=== PATIENT | female | born 1940 | race Caucasian/White ===

== ENCOUNTER 2017-08-05 19:50 | Inpatient (IN) | payer OTHER, MEDICAID ==
[~2017-08-05] VITALS: Ht 152.4 cm; Wt 50.3 kg
[~2017-08-05 19:50] MED LIST: CARVEDILOL3.125 MG PO; FUROSEMI PO; GLIPIZIDE10 M PO; GLU10; L20; ZOC10; [UNRECOGNIZED DRUG - REMARK]
[2017-08-05 21:10] LABS: microscopic required? YES; urine erythrocyte NEGATIVE (NEGATIVE)
[2017-08-05 21:14] LABS: BASOPHIL % 0.4 % (0-2); PLATELET COUNT 206 x10^3mcL (130-400)
[2017-08-05 21:16] LABS: RED CELL DISTRIBUTION WIDTH 16.5 % (11.5-14.5)
[2017-08-05 21:18] LABS: CALCIUM 8.6 mg/dL (8.5-10.1); CARBON DIOXIDE 26.6 mmol/L (21-32); CHLORIDE SERUM 97 mmol/L (98-107); GLUCOSE SERUM 189 mg/dL (74-106); POTASSIUM SERUM 4.7 mmol/L (3.5-5.1); SODIUM SERUM 135 mmol/L (136-145)
[2017-08-05 21:22] LABS: ALBUMIN 3.6 g/dL (3.4-5.0); ALKALINE PHOSPHATASE 123 U/L (46-116); ALT/SGPT 173 U/L (14-59); AST/SGOT 262 U/L (15-37); BILIRUBIN TOTAL 0.95 mg/dL (0.20-1.00); TOTAL PROTEIN, SERUM 8.4 g/dL (6.4-8.2)
[2017-08-05 21:50] LABS: CK-MB 2.8 ng/mL (0-3.6)
[2017-08-06 00:49] VITALS: BP 135/76
[2017-08-06 00:55] VITALS: Ht 152.4 cm; Wt 50.3 kg
[2017-08-06 01:38] LABS: MAGNESIUM 3.2 mg/dL (1.8-2.4); PHOSPHOROUS 4.6 mg/dL (2.5-4.9)
[2017-08-06 01:39] LABS: CHOLESTEROL/HDL RATIO 3.2
[2017-08-06 01:42] LABS: T3 TOTAL 0.71 ng/mL
[2017-08-06 01:55] LABS: FREE T4 1.4 ng/dL (0.76-1.46); T4(THYROXINE) 7.8 ug/dL (4.7-13.3)
[2017-08-06 05:11] VITALS: BP 127/70
[2017-08-06 08:55] VITALS: BP 137/76
[2017-08-06 10:45] VITALS: BP 137/76
[2017-08-06 16:41] VITALS: BP 105/54
[2017-08-06 21:13] VITALS: BP 102/55
[2017-08-07] VITALS (8 sets, daily range): BP systolic 94–129; BP diastolic 48–68
[2017-08-07 05:51] LABS: BASOPHIL % 0.2 % (0-2); PLATELET COUNT 168 x10^3mcL (130-400)
[2017-08-07 06:11] LABS: RED CELL DISTRIBUTION WIDTH 16.7 % (11.5-14.5)
[2017-08-07 06:26] LABS: CALCIUM 7.7 mg/dL (8.5-10.1); CARBON DIOXIDE 30.3 mmol/L (21-32); CHLORIDE SERUM 101 mmol/L (98-107); CREATININE SERUM 1.9 mg/dL (0.6-1.0); GLUCOSE SERUM 89 mg/dL (74-106); MAGNESIUM 2.9 mg/dL (1.8-2.4); PHOSPHOROUS 5.3 mg/dL (2.5-4.9); POTASSIUM SERUM 4.5 mmol/L (3.5-5.1); SODIUM SERUM 138 mmol/L (136-145)
[2017-08-08 06:15] VITALS: BP 128/58
[2017-08-08 06:20] LABS: CALCIUM 7.8 mg/dL (8.5-10.1); CARBON DIOXIDE 33.7 mmol/L (21-32); CHLORIDE SERUM 101 mmol/L (98-107); CREATININE SERUM 1.6 mg/dL (0.6-1.0); GLUCOSE SERUM 97 mg/dL (74-106); MAGNESIUM 2.5 mg/dL (1.8-2.4); PHOSPHOROUS 4.6 mg/dL (2.5-4.9); POTASSIUM SERUM 4.4 mmol/L (3.5-5.1); SODIUM SERUM 139 mmol/L (136-145)
[2017-08-08 06:34] LABS: BASOPHIL % 0.1 % (0-2); PLATELET COUNT 160 x10^3mcL (130-400)
[2017-08-08 06:35] LABS: RED CELL DISTRIBUTION WIDTH 16.8 % (11.5-14.5)
[2017-08-08 14:00] VITALS: BP 107/56
[2017-08-08] MEDS ORDERED: L20 PO (14:17)
[2017-08-08] MEDS ORDERED: COR6 PO (14:20)
[2017-08-08] MEDS ORDERED: ECO81 PO (14:20)
[2017-08-08] MEDS ORDERED: OSCD PO (14:21)
[2017-08-08] MEDS ORDERED: LAC PO (14:21)
[2017-08-08] MEDS ORDERED: LEVAQUIN750 MG PO (14:22)
[2017-08-08 17:01] VITALS: BP 100/52
== END 2017-08-08 19:48 | disposition home or self-care (01) | DRG 314 ==
LOC: ED 19:50 → DU 23:51
PROVIDERS: Emergency Medicine; ADMIT Family Medicine
DX: T82.847A Pain due to cardiac prosthetic devices, implants and grafts, initial encounter (principal); N17.0 Acute kidney failure with tubular necrosis; I50.43 Acute on chronic combined systolic (congestive) and diastolic (congestive) heart failure; N39.0 Urinary tract infection, site not specified; I42.9 Cardiomyopathy, unspecified; D68.69 Other thrombophilia; E11.51 Type 2 diabetes mellitus with diabetic peripheral angiopathy without gangrene; E11.65 Type 2 diabetes mellitus with hyperglycemia; I25.10 Atherosclerotic heart disease of native coronary artery without angina pectoris; E78.5 Hyperlipidemia, unspecified; I12.9 Hypertensive chronic kidney disease with stage 1 through stage 4 chronic kidney disease, or unspecified chronic kidney disease; N18.9 Chronic kidney disease, unspecified; E83.41 Hypermagnesemia; E87.8 Other disorders of electrolyte and fluid balance, not elsewhere classified; E02 Subclinical iodine-deficiency hypothyroidism; M54.2 Cervicalgia; M19.90 Unspecified osteoarthritis, unspecified site; M46.04 Spinal enthesopathy, thoracic region; Z68.22 Body mass index [BMI] 22.0-22.9, adult; Y83.1 Surgical operation with implant of artificial internal device as the cause of abnormal reaction of the patient, or of later complication, without mention of misadventure at the time of the procedure; Z79.84 Long term (current) use of oral hypoglycemic drugs; Y92.009 Unspecified place in unspecified non-institutional (private) residence as the place of occurrence of the external cause
CPT/HCPCS: 82962; 83880; 84439; 94150; 97110-GP; 97116-GP; 97530-GP; J0696; J1940; J2270; J2405; J7030; Q0092

== ENCOUNTER 2017-08-23 13:55 | Inpatient (IN) | payer OTHER, MEDICAID ==
[~2017-08-23] VITALS: Ht 152.4 cm; Wt 52.6 kg
[~2017-08-23 13:55] MED LIST changes: +COR6 PO; +ECO81 PO; -GLIPIZIDE10 M PO; +GLU10XL PO; +L20 PO; +LAC PO; +LEVAQUIN750 MG PO; +OSCD PO
[2017-08-23] MEDS ORDERED: LASIX40 MG PO (18:14)
[2017-08-23] MEDS ORDERED: GABAPENTIN100 M2 PO (18:16)
[2017-08-23 18:17] LABS: BASOPHIL % 0.3 % (0-2); PLATELET COUNT 208 x10^3mcL (130-400)
[2017-08-23] MEDS ORDERED: METFORMIN850 M1 PO (18:17)
[2017-08-23] MEDS ORDERED: APAP500 MG PO (18:17)
[2017-08-23] MEDS ORDERED: COZAAR100 MG PO (18:17)
[2017-08-23 18:18] LABS: RED CELL DISTRIBUTION WIDTH 20.6 % (11.5-14.5)
[2017-08-23 18:23] LABS: UA SPECIFIC GRAVITY 1.025 (1.005-1.035); microscopic required? YES; urine erythrocyte NEGATIVE (NEGATIVE)
[2017-08-23 18:48] LABS: CALCIUM 8.3 mg/dL (8.5-10.1); CARBON DIOXIDE 29.6 mmol/L (21-32); CHLORIDE SERUM 97 mmol/L (98-107); CREATININE SERUM 1.7 mg/dL (0.6-1.0); GLUCOSE SERUM 144 mg/dL (74-106); POTASSIUM SERUM 4.2 mmol/L (3.5-5.1); SODIUM SERUM 135 mmol/L (136-145)
[2017-08-23 18:53] LABS: ALBUMIN 3.5 g/dL (3.4-5.0); ALKALINE PHOSPHATASE 95 U/L (46-116); ALT/SGPT 57 U/L (14-59); AST/SGOT 57 U/L (15-37); BILIRUBIN TOTAL 1.26 mg/dL (0.20-1.00); TOTAL PROTEIN, SERUM 7.8 g/dL (6.4-8.2)
[2017-08-23 20:28] VITALS: BP 113/79
[2017-08-23 20:30] LABS: CHOLESTEROL/HDL RATIO 3.6; MAGNESIUM 2.5 mg/dL (1.8-2.4); PHOSPHOROUS 4.7 mg/dL (2.5-4.9)
[2017-08-23 20:40] LABS: T3 TOTAL 0.42 ng/mL
[2017-08-23 20:53] VITALS: BP 113/79
[2017-08-23 20:59] LABS: FREE T4 1.44 ng/dL (0.76-1.46); FREE THYROXINE INDEX 2.9 ug/dL (1.4-4.5); T4(THYROXINE) 7.5 ug/dL (4.7-13.3)
[2017-08-24 01:25] LABS: AMPHETAMINE QUAL UR NONE DETECTED (NEG <=1000)
[2017-08-24 05:30] VITALS: BP 104/69
[2017-08-24 07:06] LABS: BASOPHIL % 0.3 % (0-2); PLATELET COUNT 176 x10^3mcL (130-400)
[2017-08-24 07:11] LABS: CALCIUM 7.9 mg/dL (8.5-10.1); CARBON DIOXIDE 29.9 mmol/L (21-32); CHLORIDE SERUM 100 mmol/L (98-107); CREATININE SERUM 1.6 mg/dL (0.6-1.0); GLUCOSE SERUM 159 mg/dL (74-106); MAGNESIUM 2.4 mg/dL (1.8-2.4); PHOSPHOROUS 4.2 mg/dL (2.5-4.9); POTASSIUM SERUM 3.5 mmol/L (3.5-5.1); SODIUM SERUM 138 mmol/L (136-145)
[2017-08-24 09:01] VITALS: BP 99/60
[2017-08-24 13:21] VITALS: BP 99/61
[2017-08-24 16:37] VITALS: BP 99/58
[2017-08-24 21:58] VITALS: BP 95/55; BP 99/55
[2017-08-25 05:33] VITALS: BP 120/69
[2017-08-25 07:06] LABS: CHLORIDE SERUM 98 mmol/L (98-107); CREATININE SERUM 1.8 mg/dL (0.6-1.0); GLUCOSE SERUM 96 mg/dL (74-106); MAGNESIUM 2.5 mg/dL (1.8-2.4); PHOSPHOROUS 5.7 mg/dL (2.5-4.9); POTASSIUM SERUM 4.4 mmol/L (3.5-5.1); SODIUM SERUM 138 mmol/L (136-145)
[2017-08-25 07:15] LABS: BASOPHIL % 0.7 % (0-2); PLATELET COUNT 165 x10^3mcL (130-400)
[2017-08-25 07:18] LABS: RED CELL DISTRIBUTION WIDTH 19.3 % (11.5-14.5)
[2017-08-25 09:23] VITALS: BP 126/71
[2017-08-25 12:52] VITALS: BP 100/66
[2017-08-25 16:48] LABS: CALCIUM 7.5 mg/dL (8.5-10.1); CARBON DIOXIDE 31.1 mmol/L (21-32); CHLORIDE SERUM 97 mmol/L (98-107); CREATININE SERUM 1.8 mg/dL (0.6-1.0); GLUCOSE SERUM 293 mg/dL (74-106); MAGNESIUM 2.5 mg/dL (1.8-2.4); POTASSIUM SERUM 4.3 mmol/L (3.5-5.1); SODIUM SERUM 133 mmol/L (136-145)
[2017-08-25 17:16] VITALS: BP 101/59
[2017-08-25 21:40] VITALS: BP 105/67
[2017-08-26 06:18] VITALS: BP 105/64
[2017-08-26 06:26] LABS: CALCIUM 8.2 mg/dL (8.5-10.1); CARBON DIOXIDE 30.6 mmol/L (21-32); CHLORIDE SERUM 99 mmol/L (98-107); CREATININE SERUM 1.6 mg/dL (0.6-1.0); GLUCOSE SERUM 72 mg/dL (74-106); MAGNESIUM 2.4 mg/dL (1.8-2.4); PHOSPHOROUS 4.7 mg/dL (2.5-4.9); POTASSIUM SERUM 4.2 mmol/L (3.5-5.1); SODIUM SERUM 138 mmol/L (136-145)
[2017-08-26 08:04] LABS: BASOPHIL % 0.7 % (0-2); PLATELET COUNT 154 x10^3mcL (130-400)
[2017-08-26 08:07] LABS: RED CELL DISTRIBUTION WIDTH 19.4 % (11.5-14.5)
[2017-08-26 09:40] VITALS: BP 100/61
[2017-08-26 12:49] VITALS: BP 134/54; BP 96/59
[2017-08-26 16:58] VITALS: BP 96/59
[2017-08-26] MEDS ORDERED: COREG12.5 MG PO (17:02)
[2017-08-26] MEDS ORDERED: SIMETHICONE80 MG CH (17:02)
[2017-08-26 17:27] VITALS: BP 103/62
[2017-08-26 19:50] VITALS: BP 105/60
== END 2017-08-26 20:05 | disposition home or self-care (01) | DRG 280 ==
LOC: ED 13:55 → DU 19:10
PROVIDERS: Emergency Medicine; Family Medicine Sports Medicine; ADMIT Student in an Organized Health Care Education/Training Program
DX: I50.43 Acute on chronic combined systolic (congestive) and diastolic (congestive) heart failure (principal); J96.00 Acute respiratory failure, unspecified whether with hypoxia or hypercapnia; I21.A1 Myocardial infarction type 2; N17.0 Acute kidney failure with tubular necrosis; I42.0 Dilated cardiomyopathy; D68.69 Other thrombophilia; N39.0 Urinary tract infection, site not specified; E11.65 Type 2 diabetes mellitus with hyperglycemia; E83.41 Hypermagnesemia; E87.8 Other disorders of electrolyte and fluid balance, not elsewhere classified; R80.9 Proteinuria, unspecified; E83.39 Other disorders of phosphorus metabolism; E78.2 Mixed hyperlipidemia; M46.04 Spinal enthesopathy, thoracic region; E02 Subclinical iodine-deficiency hypothyroidism; M54.2 Cervicalgia; I35.1 Nonrheumatic aortic (valve) insufficiency; I34.0 Nonrheumatic mitral (valve) insufficiency; I36.1 Nonrheumatic tricuspid (valve) insufficiency
CPT/HCPCS: 82962; 83880; 84439; J1885; J1940; J3490; J7042; Q0092

== ENCOUNTER 2017-08-30 13:16 | Inpatient (IN) | payer OTHER, MEDICAID ==
[~2017-08-30] VITALS: Ht 160 cm; Wt 52.2 kg
[~2017-08-30 13:16] MED LIST changes: +APAP500 MG PO; +COREG12.5 MG PO; +COZAAR100 MG PO; +GABAPENTIN100 M2 PO; +LASIX40 MG PO; +METFORMIN850 M1 PO; +SIMETHICONE80 MG CH
[2017-08-30 13:34] VITALS: BP 84/50
[2017-08-30 14:10] LABS: BASOPHIL % 1.3 % (0-2); PLATELET COUNT 151 x10^3mcL (130-400)
[2017-08-30 14:12] LABS: RED CELL DISTRIBUTION WIDTH 19.6 % (11.5-14.5)
[2017-08-30 14:18] LABS: CHLORIDE SERUM 94 mmol/L (98-107); CREATININE SERUM 1.9 mg/dL (0.6-1.0); GLUCOSE SERUM 174 mg/dL (74-106); POTASSIUM SERUM 4.2 mmol/L (3.5-5.1); SODIUM SERUM 135 mmol/L (136-145)
[2017-08-30 16:06] LABS: T3 TOTAL 0.38 ng/mL
[2017-08-30 16:08] LABS: FREE T4 1.35 ng/dL (0.76-1.46); FREE THYROXINE INDEX 2.5 ug/dL (1.4-4.5); T4(THYROXINE) 6.6 ug/dL (4.7-13.3)
[2017-08-30 16:45] VITALS: BP 144/69
[2017-08-30 17:05] LABS: CHOLESTEROL/HDL RATIO 4.7; MAGNESIUM 2.3 mg/dL (1.8-2.4); PHOSPHOROUS 5.1 mg/dL (2.5-4.9)
[2017-08-30 20:00] VITALS: BP 91/58
[2017-08-31] VITALS: BP 75/48
[2017-08-31 08:00] VITALS: BP 84/50
[2017-08-31 08:01] LABS: BASOPHIL % 0.2 % (0-2); PLATELET COUNT 156 x10^3mcL (130-400)
[2017-08-31 08:07] LABS: RED CELL DISTRIBUTION WIDTH 19.7 % (11.5-14.5)
[2017-08-31 08:20] LABS: CALCIUM 7.3 mg/dL (8.5-10.1); CARBON DIOXIDE 24.7 mmol/L (21-32); CHLORIDE SERUM 96 mmol/L (98-107); CREATININE SERUM 2.2 mg/dL (0.6-1.0); GLUCOSE SERUM 76 mg/dL (74-106); MAGNESIUM 2.6 mg/dL (1.8-2.4); POTASSIUM SERUM 4.6 mmol/L (3.5-5.1); SODIUM SERUM 135 mmol/L (136-145)
[2017-08-31 19:15] VITALS: BP 142/67
[2017-08-31 19:30] VITALS: BP 105/63
[2017-08-31 23:00] VITALS: BP 95/69
[2017-08-31 23:50] VITALS: BP 94/57
[2017-09-01 01:00] VITALS: BP 100/64
[2017-09-01 05:30] LABS: BASOPHIL % 0.2 % (0-2)
[2017-09-01 05:31] LABS: PLATELET COUNT 116 x10^3mcL (130-400); RED CELL DISTRIBUTION WIDTH 18.9 % (11.5-14.5)
[2017-09-01 05:33] LABS: CALCIUM 7.3 mg/dL (8.5-10.1); CARBON DIOXIDE 26.2 mmol/L (21-32); CHLORIDE SERUM 94 mmol/L (98-107); CREATININE SERUM 3.5 mg/dL (0.6-1.0); GLUCOSE SERUM 127 mg/dL (74-106); MAGNESIUM 2.3 mg/dL (1.8-2.4); PHOSPHOROUS 7.9 mg/dL (2.5-4.9); POTASSIUM SERUM 5.1 mmol/L (3.5-5.1); SODIUM SERUM 131 mmol/L (136-145)
[2017-09-01 07:54] VITALS: BP 121/68
[2017-09-01 09:10] VITALS: Ht 160 cm; Wt 52.2 kg
[2017-09-01 12:45] VITALS: BP 102/65
[2017-09-01 13:39] LABS: UA SPECIFIC GRAVITY 1.025 (1.005-1.035); microscopic required? YES; urine erythrocyte 3+ (NEGATIVE)
[2017-09-01 14:04] LABS: AMPHETAMINE QUAL UR NONE DETECTED (NEG <=1000)
[2017-09-01 16:00] VITALS: BP 130/40
[2017-09-01 20:59] VITALS: BP 109/60
[2017-09-02 00:06] VITALS: BP 131/61
[2017-09-02 03:14] VITALS: BP 140/58
[2017-09-02 04:04] VITALS: BP 134/79
[2017-09-02 05:44] LABS: CALCIUM 7.6 mg/dL (8.5-10.1); CARBON DIOXIDE 26.4 mmol/L (21-32); CHLORIDE SERUM 93 mmol/L (98-107); CREATININE SERUM 3.5 mg/dL (0.6-1.0); MAGNESIUM 2.4 mg/dL (1.8-2.4); PHOSPHOROUS 7.5 mg/dL (2.5-4.9); POTASSIUM SERUM 5.2 mmol/L (3.5-5.1); SODIUM SERUM 132 mmol/L (136-145)
[2017-09-02 05:51] LABS: GLUCOSE SERUM 23 mg/dL (74-106)
[2017-09-02 07:00] VITALS: BP 117/58
[2017-09-02 07:21] LABS: PLATELET COUNT 110 x10^3mcL (130-400); RED CELL DISTRIBUTION WIDTH 18.7 % (11.5-14.5)
[2017-09-02 07:33] VITALS: BP 117/58
[2017-09-02 09:24] LABS: BAND NEUTROPHIL 8 % (0-10); BASOPHIL 0 % (0-2); MONOCYTE 8 % (0-7); SEGMENTED NEUTROPHILS 81 % (37-75)
[2017-09-02 09:27] LABS: PLATELET MORPHOLOGY LARGE PLATELET SEEN; rbc morphology (normal/abnorm) ABNORMAL (NORMAL); target cell (codocyte) 1+; tear drop cell (dacryocyte) 1+
[2017-09-02 11:23] VITALS: BP 90/49
== END 2017-09-02 16:09 | disposition expired | DRG 177 ==
LOC: ED 13:16 → DU 15:03 → IC 15:03 → ED 15:03 → IC 16:27
PROVIDERS: Emergency Medicine; Family Medicine; ADMIT Family Medicine Sports Medicine
PROC: 05HM33Z Insertion of Infusion Device into Right Internal Jugular Vein, Percutaneous Approach (ICD-10-PCS; principal; 2017-08-31)
PROC: B543ZZA Ultrasonography of Right Jugular Veins, Guidance (ICD-10-PCS; 2017-08-31)
DX: J69.0 Pneumonitis due to inhalation of food and vomit (principal); I50.43 Acute on chronic combined systolic (congestive) and diastolic (congestive) heart failure; E43 Unspecified severe protein-calorie malnutrition; J96.20 Acute and chronic respiratory failure, unspecified whether with hypoxia or hypercapnia; N17.0 Acute kidney failure with tubular necrosis; I47.2 Ventricular tachycardia; I42.0 Dilated cardiomyopathy; E87.1 Hypo-osmolality and hyponatremia; D68.69 Other thrombophilia; J44.1 Chronic obstructive pulmonary disease with (acute) exacerbation; E11.51 Type 2 diabetes mellitus with diabetic peripheral angiopathy without gangrene; E11.65 Type 2 diabetes mellitus with hyperglycemia; I10 Essential (primary) hypertension; I35.1 Nonrheumatic aortic (valve) insufficiency; I34.0 Nonrheumatic mitral (valve) insufficiency; I36.1 Nonrheumatic tricuspid (valve) insufficiency; I25.10 Atherosclerotic heart disease of native coronary artery without angina pectoris; E78.2 Mixed hyperlipidemia; R80.9 Proteinuria, unspecified; E83.39 Other disorders of phosphorus metabolism; E87.8 Other disorders of electrolyte and fluid balance, not elsewhere classified; M46.04 Spinal enthesopathy, thoracic region; M50.321 Other cervical disc degeneration at C4-C5 level; G89.29 Other chronic pain; Z66 Do not resuscitate; Z51.5 Encounter for palliative care; Z79.82 Long term (current) use of aspirin; Z95.2 Presence of prosthetic heart valve; Z68.20 Body mass index [BMI] 20.0-20.9, adult; Z95.1 Presence of aortocoronary bypass graft; Z79.84 Long term (current) use of oral hypoglycemic drugs; Z95.810 Presence of automatic (implantable) cardiac defibrillator
CPT/HCPCS: 36556; 82962; 83880; 84439; 94150; A4628; J0282; J0696; J1642; J1815; J1885; J1940; J1956; J2060; J2270; J2405; J3490; J7030; J7040; J7042; J7060; J7620; Q0092